=== PATIENT | male | born 1940 | race Hispanic/Latino ===

== ENCOUNTER → 2019-02-11 | Outpatient (CLI) | payer MEDICARE | END | disposition home or self-care (01) | LOC: RAH 14:09 | PROVIDERS: ATTEND Family Medicine | DX: M79.604 Pain in right leg (principal); M79.605 Pain in left leg | CPT/HCPCS: 93970 ==

== ENCOUNTER → 2022-05-06 | Outpatient (CLI) | payer OTHER, MEDICARE ==
[2022-05-06 12:22] LABS: BASOPHILS % (AUTO) 0.6 % (0.0-5.0); EOSINOPHILS % (AUTO) 6.2 % (0.0-8.0); HEMATOCRIT 35.4 % (42-54); LYMPHOCYTES % (AUTO) 21.3 % (21.0-51.0); MEAN CORPUSCULAR HEMOGLOBIN 29.9 pg (27.0-33.0); MEAN CORPUSCULAR HGB CONC 32.8 g/dL (32.0-36.0); MEAN CORPUSCULAR VOLUME 91.2 fL (79-99); MONOCYTES % (AUTO) 4.9 % (3.0-13.0); NEUTROPHILS % (AUTO) 66.8 % (40.0-77.0); PLATELET COUNT (AUTO) 383 K/uL (130-400); RED BLOOD CELL COUNT(AUTO) 3.88 MIL/uL (4.50-6.20); RED CELL DISTRIBUTION WIDTH 15.2 % (11.0-15.5); WHITE BLOOD COUNT (AUTO) 8.9 K/uL (4.8-10.8)
[2022-05-06 12:53] LABS: ALBUMIN 3.6 g/dL (3.5-5.0); BILIRUBIN,TOTAL 0.3 mg/dL (0.2-1.0); CREATININE 2.6 mg/dL (0.5-1.5); POTASSIUM 4.4 mmol/L (3.5-5.1)
== END | disposition home or self-care (01) ==
LOC: LAB 08:21
PROVIDERS: ATTEND Internal Medicine
DX: E78.5 Hyperlipidemia, unspecified (principal)
CPT/HCPCS: 36415; 80053; 85025

== ENCOUNTER 2023-04-26 08:37 | Day surgery (SDC) | payer OTHER, MEDICARE ==
[2023-04-21 09:46] VITALS: BP 153/67
[2023-04-21 10:02] LABS: BASOPHILS % (AUTO) 0.5 % (0.0-5.0); EOSINOPHILS % (AUTO) 1.6 % (0.0-8.0); HEMATOCRIT 33.6 % (42-54); MEAN CORPUSCULAR HEMOGLOBIN 32.6 pg (27.0-33.0); MEAN CORPUSCULAR HGB CONC 32.7 g/dL (32.0-36.0); MEAN CORPUSCULAR VOLUME 99.7 fL (79-99); MONOCYTES % (AUTO) 6.2 % (3.0-13.0); NEUTROPHILS % (AUTO) 75.2 % (40.0-77.0); PLATELET COUNT (AUTO) 312 K/uL (130-400); RED BLOOD CELL COUNT(AUTO) 3.37 MIL/uL (4.50-6.20); RED CELL DISTRIBUTION WIDTH 13.8 % (11.0-15.5); WHITE BLOOD COUNT (AUTO) 8.8 K/uL (4.8-10.8)
[2023-04-21 10:16] LABS: INR 0.98 (0.85-1.15); PROTHROMBIN TIME 10.7 SEC (9.6-11.6)
[2023-04-21 10:17] LABS: CREATININE 4.2 mg/dL (0.5-1.5)
[2023-04-21 10:18] LABS: PARTIAL THROMBOPLASTIN TIME 30.5 SEC (26.3-35.5)
[2023-04-26] VITALS (15 sets, daily range): BP systolic 122–152; BP diastolic 38–65
[~2023-04-26] VITALS: Ht 157.5 cm; Wt 67.7 kg
[2023-04-26] MEDS ORDERED: 0.9% NACL 500ML IV.SOLN 500 ML IV ONE (09:58)
[2023-04-26] MEDS ORDERED: CEFAZOLIN SODIUM 2 GM VIAL ONE (09:58)
[2023-04-26 10:08] LABS: CREATININE 4.2 mg/dL (0.5-1.5); POTASSIUM 4.3 mmol/L (3.5-5.1)
[2023-04-26] MEDS ORDERED: DAPA10TA PO (10:23)
[2023-04-26] MEDS ORDERED: GABA-529 PO (10:23)
[2023-04-26] MEDS ORDERED: LOSA100T59 PO (10:23)
[2023-04-26] MEDS ORDERED: AMLO-257 PO (10:23)
[2023-04-26] MEDS ORDERED: MEMA10TA55 PO (10:23)
[2023-04-26] MEDS ORDERED: DONE5TAB33 PO (10:23)
[2023-04-26] MEDS ORDERED: OMEP40CA21 PO (10:23)
[2023-04-26] MEDS ORDERED: SEMA7TAB2 PO (10:23)
[2023-04-26] MEDS ORDERED: PIOG30TA70 PO (10:23)
[2023-04-26] MEDS ORDERED: PRAV20TA4 PO (10:23)
[2023-04-26] MEDS ORDERED: ROPIVACAINE 0.5% 5MG/ML 30ML IJ ONE (10:52)
[2023-04-26] MEDS ORDERED: PROPOFOL 10 MG/ML 20ML VIAL IV ONE (11:15)
[2023-04-26] MEDS ORDERED: MIDAZOLAM HCL 1 MG/ML 2ML VIAL ONE (11:15)
[2023-04-26] MEDS ORDERED: DEXAMETHASONE SOD PHOSPHATE 10MG/ML 1ML VIAL ONE (11:15)
[2023-04-26] MEDS ORDERED: FENTANYL CITRATE PF 50 MCG/1 ML 2ML VIAL ONE (11:15)
[2023-04-26] MEDS ORDERED: LIDOCAINE PF 100MG/5ML (2%) SYRINGE 5ML ONE (11:15)
[2023-04-26] MEDS ORDERED: SUCCINYLCHOLINE 200MG/10ML SYR ONE (11:15)
[2023-04-26] MEDS ORDERED: GLYCOPYRROLATE 1 MG/5 ML SYRINGE ONE (11:15)
[2023-04-26] MEDS ORDERED: ROCURONIUM 10MG/1ML SYR 10 MG/ML ML ONE (11:15)
[2023-04-26] MEDS ORDERED: ONDANSETRON 4MG INJ ONE (11:15)
[2023-04-26] MEDS ORDERED: NEOSTIGMINE 5MG/5ML SYR IV ONE (11:15)
[2023-04-26] MEDS ORDERED: LIDOCAINE 2%-EPI 1:200,000 20 ML VIAL IJ ONE (12:28)
== END 2023-04-26 14:15 | disposition home or self-care (01) ==
LOC: DAH 08:37
PROVIDERS: ATTEND Student in an Organized Health Care Education/Training Program
DX: N18.6 End stage renal disease (principal); Z20.822 Contact with and (suspected) exposure to COVID-19; E11.22 Type 2 diabetes mellitus with diabetic chronic kidney disease; I12.0 Hypertensive chronic kidney disease with stage 5 chronic kidney disease or end stage renal disease; I45.10 Unspecified right bundle-branch block; K21.9 Gastro-esophageal reflux disease without esophagitis; D64.9 Anemia, unspecified; E78.5 Hyperlipidemia, unspecified; E03.9 Hypothyroidism, unspecified; M19.90 Unspecified osteoarthritis, unspecified site; Z99.2 Dependence on renal dialysis; Z87.891 Personal history of nicotine dependence; Z98.890 Other specified postprocedural states; Z90.49 Acquired absence of other specified parts of digestive tract; Z79.01 Long term (current) use of anticoagulants; Z79.899 Other long term (current) drug therapy
CPT/HCPCS: 80048 ×2; 85025; 85610; 85730; 86850 ×2; 86900 ×2; 86901 ×2; 87426; 36415 ×2; 71045; 93005; 64415; 36821; 82948 ×2; A6260; A4663; J7040; J0330; J3490 ×2; J1100; J2710; J2001; J2405; J1644; J2795; J0690; G0168; A4649 ×3; C1713 ×2; A4215; A4223; A4222; A4221; J2250; J2704; J3010

== ENCOUNTER → 2025-07-15 | Outpatient (CLI) | payer OTHER, MEDICAID ==
[~2025-07-15] MED LIST: AMLO-257 PO; DAPA10TA PO; DONE5TAB33 PO; GABA-529 PO; LOSA100T59 PO; MEMA10TA21 PO; OMEP40CA21 PO; PIOG30TA70 PO; PRAV20TA59 PO; SEMA7TAB2 PO
--- NOTE | 2025-07-16 13:22 | HMCIMG ---
EXAMINATION: ULTRASOUND OF THE THYROID. CLINICAL HISTORY: Thyroid nodule. COMPARISON: None. TECHNIQUE: Transverse and longitudinal images were obtained through both lobes and the isthmus of the thyroid. FINDINGS: The thyroid gland is normal in caliber with heterogenous tissue echotexture. The right thyroid lobe measures 3.5 x 1.2 x 0.8 cm and the left thyroid lobe measures 2.5 x 0.7 x 0.9 cm in the craniocaudal, AP, and transverse dimensions respectively. The isthmus measures 0.75 cm in AP dimension. Right lobe: There is an isoechoic solid nodule that measures 1.0 x 0.9 x 0.9 cm at the mid pole (TR3). There is an isoechoic solid nodule that measures 0.5 x 0.7 x 0.9 cm at the lower pole (TR3). Left lobe: There is an isoechoic solid nodule that measures 0.6 x 0.6 x 0.7 cm at the mid pole (TR3). Isthmus: There is a cystic nodule that measures 0.2 x 0.1 cm (TR1). No significantly enlarged lymph nodes. IMPRESSION: Heterogenous tissue echotexture of both the lobes of the thyroid, of concern for thyroiditis. Nodules in both lobes and isthmus of the thyroid. TI-RADS follow up recommendations: TR1: no FNA required TR2: no FNA required TR3: more than or equal to 1.5 cm follow up, more than or equal to 2.5 cm FNA follow up: 1, 3 and 5 years TR4: more than or equal to 1.0 cm follow up, more than or equal to 1.5 cm FNA follow up: 1, 2, 3 and 5 years TR5: more than or equal to 0.5 cm follow up, more than or equal to 1.0 cm FNA annual follow up for up to 5 years /[place]
== END | disposition home or self-care (01) ==
LOC: RAH 10:05
PROVIDERS: ATTEND Family Medicine
DX: E04.1 Nontoxic single thyroid nodule (principal); E06.9 Thyroiditis, unspecified
CPT/HCPCS: 76536